=== PATIENT | female | born 1935 | race Caucasian/White ===

== ENCOUNTER → 2016-09-02 | Outpatient (CLI) | payer OTHER ==
--- NOTE | 2016-09-02 09:23 | DI ---
MRI BRAIN SCAN WITHOUT CONTRAST, 09/02/2016 8:15 AM: Clinical History: Altered mental status. Previous Exam: None at this facility. Comparison is made with a CT brain scan without and with IV con trast and a CT angiogram of the [place] from 02/17/2008. Sequences: Sagittal T1; Axial BRITNI T2 and FLAIR. Axial diffusion weighted images with ADC mapping were also performed. The fourth ventricle is of normal size, shape, position and contour. The third and lateral ventricles are mildly dilated but are otherwise normal for this patient's age. There is an old lacunar infarct in the anterior aspect of the left basal ganglia and a second more tubular shaped lacunar infarct in the right basal ganglia near the body of the caudate nucleus. Both of these lesions were present on t he CT scan. There are multiple punctate periventricular white matter hyperintensities bilaterally wilber t extend into the watershed territory, consistent with small vessel ischemic disease. This amount of ischemic disease is appropriate for the patient's age. Diffusion weighted imaging with ADC mapping is otherwise normal. There is mild cerebellar and moderately severe to severe cerebral atrophy. There a re no extracerebral mantels or shift of the midline structures. The paranasal sinuses are normal. Readin. 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 2. Small vessel ischemic disease. 3. Diffusion-weighted imaging with ADC mapping shows the old infarcts but is otherwise normal. 4. Mild cerebellar and moderately severe to severe cerebral atrophy.
== END ==
LOC: MRI 08:14
PROVIDERS: ATTEND Family Medicine
DX: R41.82 Altered mental status, unspecified (principal); I99.8 Other disorder of circulatory system; G31.89 Other specified degenerative diseases of nervous system
CPT/HCPCS: 70551